=== PATIENT | female | born 1950 | race Caucasian/White ===

== ENCOUNTER 2016-08-09 05:34 | Inpatient (IN) | payer MEDICARE, MEDICAID ==
[~2016-08-09] VITALS: Ht 165.1 cm; Wt 81.0 kg
[2016-08-09] MEDS ORDERED: SODIUM CHLORIDE 0.9% 100 ML IV ONE (07:20)
[2016-08-09] MEDS ORDERED: CEFTRIAXONE 1 GM VIAL ONE (07:20)
[2016-08-09] MEDS ORDERED: SODIUM CHLORIDE 0.9% 1,000 ML ONE (07:20)
[2016-08-09 10:37] VITALS: BP_SYST 112; RESP 20; TEMP 98.4
[2016-08-09 10:38] VITALS: Ht 165.1 cm; Wt 81.0 kg
[2016-08-09] MEDS ORDERED: MISSING DOSE XX ONE (11:15)
[2016-08-09] MEDS: AZITHROMYCIN 500 MG in SODIUM CHLORIDE 0.9% 250 ML IV SCH (11:19)
[2016-08-09] MEDS: CEFTRIAXONE 1 GM in SODIUM CHLORIDE 0.9% 50 ML IV SCH (11:19)
[2016-08-09] MEDS: SERTRALINE 100 MG TAB PO SCH (11:19)
[2016-08-09] MEDS: METHYLPRED SOD SUCC 125 MG/2 ML VIAL IV SCH ×2 (11:19→16:37)
[2016-08-09] MEDS: ARIPiprazole 10 MG TABLET PO SCH (11:20)
[2016-08-09] MEDS: ASPIRIN 81 MG CHEW TAB PO SCH (11:20)
[2016-08-09] MEDS: GUAIFEN/DM 600/30 TAB PO SCH ×2 (11:20→21:41)
[2016-08-09] MEDS: GABAPENTIN 300 MG CAP PO SCH ×4 (11:21→21:40)
[2016-08-09] MEDS: ENOXAPARIN 40 MG/0.4 ML SYR SUBQ SCH (11:21)
[2016-08-09] MEDS: SALINE FLUSH 10 ML FLUSH SCH ×2 (11:21→21:41)
[2016-08-09] MEDS: THEOPHYLLINE ER 300 MG TAB PO SCH (11:27)
[2016-08-09] MEDS: OXYCODONE/APAP 7.5/325 TAB PO PRN (11:28)
[2016-08-09 13:12] VITALS: BP_SYST 108; RESP 18; TEMP 99.5
[2016-08-09] MEDS: DUONEB INH SCH ×2 (15:15→16:45)
[2016-08-09 15:22] VITALS: RESP 18
[2016-08-09 15:53] VITALS: BP_SYST 109; RESP 18; TEMP 98
[2016-08-09 19:20] VITALS: BP_SYST 130; RESP 18; TEMP 98.2
[2016-08-09] MEDS: ATENOLOL 25 MG TAB PO SCH (21:40)
[2016-08-09] MEDS: CLOPIDOGREL 75 MG TAB PO SCH (21:40)
[2016-08-09] MEDS: NEB-ALBUTEROL 2.5 MG/3 ML INH PRN (23:56)
[2016-08-10] VITALS (11 sets, daily range): BP systolic 86–120; RESP 18–24; TEMP 97–98.3
[2016-08-10] MEDS: METHYLPRED SOD SUCC 125 MG/2 ML VIAL IV SCH ×3 (00:28→16:55)
[2016-08-10] MEDS: DUONEB INH SCH ×3 (05:37→19:52)
[2016-08-10] MEDS: SODIUM CHLORIDE 0.9% FLUSH BAG 500 ML IV SCH (06:06)
[2016-08-10] MEDS: OXYCODONE/APAP 7.5/325 TAB PO PRN ×4 (06:42→19:43)
[2016-08-10] MEDS: CEFTRIAXONE 1 GM in SODIUM CHLORIDE 0.9% 50 ML IV SCH (08:43)
[2016-08-10] MEDS: SALINE FLUSH 10 ML FLUSH SCH ×2 (08:43→19:44)
[2016-08-10] MEDS: SALINE FLUSH 10 ML FLUSH PRN (08:44)
[2016-08-10] MEDS: AZITHROMYCIN 500 MG in SODIUM CHLORIDE 0.9% 250 ML IV SCH (08:44)
[2016-08-10] MEDS: GUAIFEN/DM 600/30 TAB PO SCH ×2 (08:45→19:43)
[2016-08-10] MEDS: ASPIRIN 81 MG CHEW TAB PO SCH (08:46)
[2016-08-10] MEDS: THEOPHYLLINE ER 300 MG TAB PO SCH (08:46)
[2016-08-10] MEDS: SERTRALINE 100 MG TAB PO SCH (08:47)
[2016-08-10] MEDS: ENOXAPARIN 40 MG/0.4 ML SYR SUBQ SCH (08:48)
[2016-08-10] MEDS: GABAPENTIN 300 MG CAP PO SCH ×4 (09:52→19:44)
[2016-08-10] MEDS: ARIPiprazole 10 MG TABLET PO SCH (09:52)
[2016-08-10] MEDS ORDERED: Furosemide 40 MG/4 ML VIAL IV ONE (11:00)
[2016-08-10] MEDS: MONTELUKAST 10 MG TAB PO SCH (13:18)
[2016-08-10] MEDS: BENZONATATE 100 MG CAP PO PRN ×2 (13:18→19:50)
[2016-08-10] MEDS ORDERED: KCL CR 10 MEQ TAB PO ONE (13:25)
[2016-08-10] MEDS: BACLOFEN 10 MG TAB PO SCH ×2 (16:55→19:43)
[2016-08-10] MEDS: Furosemide 20 MG/2 ML VIAL IV SCH (17:39)
[2016-08-10] MEDS: ATENOLOL 25 MG TAB PO SCH (19:43)
[2016-08-10] MEDS: CLOPIDOGREL 75 MG TAB PO SCH (19:43)
[2016-08-11] MEDS: METHYLPRED SOD SUCC 125 MG/2 ML VIAL IV SCH ×2 (00:15→08:10)
[2016-08-11] MEDS: OXYCODONE/APAP 7.5/325 TAB PO PRN ×5 (02:18→23:25)
[2016-08-11 03:00] VITALS: BP_SYST 98; RESP 18; TEMP 97.6
[2016-08-11] MEDS: SODIUM CHLORIDE 0.9% FLUSH BAG 500 ML IV SCH (06:00)
[2016-08-11] MEDS: DUONEB INH SCH ×3 (07:11→18:44)
[2016-08-11 07:41] VITALS: BP_SYST 114; RESP 18; TEMP 98.3
[2016-08-11] MEDS: ASPIRIN 81 MG CHEW TAB PO SCH (08:07)
[2016-08-11] MEDS: GABAPENTIN 300 MG CAP PO SCH ×4 (08:08→20:51)
[2016-08-11] MEDS: BACLOFEN 10 MG TAB PO SCH ×3 (08:08→20:52)
[2016-08-11] MEDS: KCL CR 10 MEQ TAB PO SCH (08:08)
[2016-08-11] MEDS: GUAIFEN/DM 600/30 TAB PO SCH ×2 (08:08→20:52)
[2016-08-11] MEDS: ARIPiprazole 10 MG TABLET PO SCH (08:08)
[2016-08-11] MEDS: SERTRALINE 100 MG TAB PO SCH (08:08)
[2016-08-11] MEDS: CEFTRIAXONE 1 GM in SODIUM CHLORIDE 0.9% 50 ML IV SCH (08:09)
[2016-08-11] MEDS: THEOPHYLLINE ER 300 MG TAB PO SCH (08:09)
[2016-08-11] MEDS: MONTELUKAST 10 MG TAB PO SCH (08:09)
[2016-08-11] MEDS: Furosemide 20 MG/2 ML VIAL IV SCH ×2 (08:10→16:43)
[2016-08-11] MEDS: SALINE FLUSH 10 ML FLUSH SCH ×2 (08:11→20:52)
[2016-08-11] MEDS: ENOXAPARIN 40 MG/0.4 ML SYR SUBQ SCH (08:12)
[2016-08-11] MEDS: AZITHROMYCIN 500 MG in SODIUM CHLORIDE 0.9% 250 ML IV SCH (08:54)
[2016-08-11] MEDS ORDERED: KCL CR 10 MEQ TAB PO SCH (09:00)
[2016-08-11] MEDS ORDERED: Losartan 50 MG TAB PO SCH (09:00)
[2016-08-11] MEDS: BENZONATATE 100 MG CAP PO PRN ×3 (10:13→23:19)
[2016-08-11 11:35] VITALS: BP_SYST 129; RESP 18; TEMP 97.7
[2016-08-11 16:00] VITALS: BP_SYST 136; RESP 18; TEMP 98.1
[2016-08-11 19:38] VITALS: BP_SYST 119; RESP 22; TEMP 98.4
[2016-08-11] MEDS: ATENOLOL 25 MG TAB PO SCH (20:51)
[2016-08-11] MEDS: CLOPIDOGREL 75 MG TAB PO SCH (20:52)
[2016-08-11] MEDS: NEB-ALBUTEROL 2.5 MG/3 ML INH PRN (22:21)
[2016-08-11 23:36] VITALS: BP_SYST 129; RESP 20; TEMP 98.3
[2016-08-12 03:05] VITALS: BP_SYST 110; RESP 22; TEMP 97.4
[2016-08-12] MEDS: SODIUM CHLORIDE 0.9% FLUSH BAG 500 ML IV SCH ×2 (05:02)
[2016-08-12] MEDS: DUONEB INH SCH ×3 (06:58→18:53)
[2016-08-12 07:49] VITALS: BP_SYST 120; RESP 22; TEMP 97.2
[2016-08-12] MEDS ORDERED: MISSING DOSE XX ONE (08:45)
[2016-08-12] MEDS: PREDNISONE 20 MG TAB PO SCH (09:10)
[2016-08-12] MEDS: SALINE FLUSH 10 ML FLUSH SCH ×2 (09:10→20:52)
[2016-08-12] MEDS: CEFTRIAXONE 1 GM in SODIUM CHLORIDE 0.9% 50 ML IV SCH (09:10)
[2016-08-12] MEDS: Furosemide 20 MG/2 ML VIAL IV SCH ×2 (09:10→17:43)
[2016-08-12] MEDS: GABAPENTIN 300 MG CAP PO SCH ×4 (09:11→20:51)
[2016-08-12] MEDS: MONTELUKAST 10 MG TAB PO SCH (09:11)
[2016-08-12] MEDS: OXYCODONE/APAP 7.5/325 TAB PO PRN ×3 (09:11→20:52)
[2016-08-12] MEDS: KCL CR 10 MEQ TAB PO SCH (09:12)
[2016-08-12] MEDS: SERTRALINE 100 MG TAB PO SCH (09:12)
[2016-08-12] MEDS: ASPIRIN 81 MG CHEW TAB PO SCH (09:12)
[2016-08-12] MEDS: BENZONATATE 100 MG CAP PO PRN ×2 (09:12→20:52)
[2016-08-12] MEDS: BACLOFEN 10 MG TAB PO SCH ×3 (09:12→20:52)
[2016-08-12] MEDS: THEOPHYLLINE ER 300 MG TAB PO SCH (09:12)
[2016-08-12] MEDS: GUAIFEN/DM 600/30 TAB PO SCH ×2 (09:12→20:52)
[2016-08-12] MEDS: ENOXAPARIN 40 MG/0.4 ML SYR SUBQ SCH (09:14)
[2016-08-12] MEDS: ARIPiprazole 10 MG TABLET PO SCH (09:14)
[2016-08-12 11:03] VITALS: BP_SYST 129; RESP 20; TEMP 97.7
[2016-08-12 16:03] VITALS: BP_SYST 140; RESP 20; TEMP 97.6
[2016-08-12 20:37] VITALS: BP_SYST 122; RESP 20; TEMP 98.3
[2016-08-12] MEDS: CLOPIDOGREL 75 MG TAB PO SCH (20:51)
[2016-08-12] MEDS: ATENOLOL 25 MG TAB PO SCH (20:51)
[2016-08-12 23:12] VITALS: BP_SYST 145; RESP 18; TEMP 97.7
[2016-08-13] MEDS: OXYCODONE/APAP 7.5/325 TAB PO PRN ×4 (01:54→20:20)
[2016-08-13 04:02] VITALS: BP_SYST 135; RESP 20; TEMP 97.3
[2016-08-13] MEDS: SODIUM CHLORIDE 0.9% FLUSH BAG 500 ML IV SCH ×2 (06:00→06:08)
[2016-08-13] MEDS: DUONEB INH SCH ×3 (06:21→19:05)
[2016-08-13 07:24] VITALS: BP_SYST 121; RESP 20; TEMP 98.5
[2016-08-13] MEDS: BACLOFEN 10 MG TAB PO SCH ×3 (09:00→20:07)
[2016-08-13] MEDS: SALINE FLUSH 10 ML FLUSH SCH ×2 (09:08→20:20)
[2016-08-13] MEDS: Furosemide 20 MG/2 ML VIAL IV SCH ×2 (09:08→16:40)
[2016-08-13] MEDS: ENOXAPARIN 40 MG/0.4 ML SYR SUBQ SCH (09:09)
[2016-08-13] MEDS: CEFTRIAXONE 1 GM in SODIUM CHLORIDE 0.9% 50 ML IV SCH (09:09)
[2016-08-13] MEDS: SERTRALINE 100 MG TAB PO SCH (09:10)
[2016-08-13] MEDS: BENZONATATE 100 MG CAP PO PRN ×2 (09:10→20:19)
[2016-08-13] MEDS: KCL CR 10 MEQ TAB PO SCH (09:13)
[2016-08-13] MEDS: GUAIFEN/DM 600/30 TAB PO SCH ×2 (09:13→20:19)
[2016-08-13] MEDS: GABAPENTIN 300 MG CAP PO SCH ×4 (09:14→20:19)
[2016-08-13] MEDS: MONTELUKAST 10 MG TAB PO SCH (09:14)
[2016-08-13] MEDS: PREDNISONE 20 MG TAB PO SCH (09:14)
[2016-08-13] MEDS: THEOPHYLLINE ER 300 MG TAB PO SCH (09:14)
[2016-08-13] MEDS: ARIPiprazole 10 MG TABLET PO SCH (09:15)
[2016-08-13] MEDS: ASPIRIN 81 MG CHEW TAB PO SCH (10:19)
[2016-08-13] MEDS: SALINE FLUSH 10 ML FLUSH PRN ×2 (10:19→16:43)
[2016-08-13 11:17] VITALS: BP_SYST 115; RESP 20; TEMP 98.1
[2016-08-13 14:58] VITALS: BP_SYST 144; RESP 20; TEMP 98.2
[2016-08-13] MEDS ORDERED: KCL CR 20 MEQ TAB PO ONE (16:55)
[2016-08-13] MEDS: NEB-BUDESONIDE 0.5 MG INH SCH (19:05)
[2016-08-13] MEDS: NEB-BROVANA 15 MCG/2 ML INH SCH (19:05)
[2016-08-13 19:41] VITALS: BP_SYST 147; RESP 18; TEMP 97.6
[2016-08-13] MEDS: ATENOLOL 25 MG TAB PO SCH (20:19)
[2016-08-13] MEDS: CLOPIDOGREL 75 MG TAB PO SCH (20:19)
[2016-08-13 23:44] VITALS: BP_SYST 110; RESP 18; TEMP 97.6
[2016-08-14] MEDS: NEB-ALBUTEROL 2.5 MG/3 ML INH PRN ×2 (00:18→23:01)
[2016-08-14 03:00] VITALS: BP_SYST 117; RESP 18; TEMP 97.3
[2016-08-14] MEDS: SODIUM CHLORIDE 0.9% FLUSH BAG 500 ML IV SCH ×2 (05:32)
[2016-08-14] MEDS: OXYCODONE/APAP 7.5/325 TAB PO PRN ×3 (07:05→20:10)
[2016-08-14 07:11] VITALS: BP_SYST 127; RESP 18; TEMP 97.6
[2016-08-14] MEDS: NEB-BUDESONIDE 0.5 MG INH SCH ×2 (07:34→18:44)
[2016-08-14] MEDS: DUONEB INH SCH ×3 (07:34→18:44)
[2016-08-14] MEDS: NEB-BROVANA 15 MCG/2 ML INH SCH ×2 (07:34→18:44)
[2016-08-14] MEDS: Furosemide 20 MG/2 ML VIAL IV SCH ×2 (08:05→17:01)
[2016-08-14] MEDS: CEFTRIAXONE 1 GM in SODIUM CHLORIDE 0.9% 50 ML IV SCH (08:05)
[2016-08-14] MEDS: SALINE FLUSH 10 ML FLUSH SCH ×2 (08:05→20:03)
[2016-08-14] MEDS: KCL CR 10 MEQ TAB PO SCH (08:09)
[2016-08-14] MEDS: THEOPHYLLINE ER 300 MG TAB PO SCH (08:10)
[2016-08-14] MEDS: SERTRALINE 100 MG TAB PO SCH (08:10)
[2016-08-14] MEDS: ASPIRIN 81 MG CHEW TAB PO SCH (08:10)
[2016-08-14] MEDS: MONTELUKAST 10 MG TAB PO SCH (08:10)
[2016-08-14] MEDS: ARIPiprazole 10 MG TABLET PO SCH (08:11)
[2016-08-14] MEDS: GUAIFEN/DM 600/30 TAB PO SCH ×2 (08:11→20:03)
[2016-08-14] MEDS: GABAPENTIN 300 MG CAP PO SCH ×4 (08:11→20:03)
[2016-08-14] MEDS: PREDNISONE 20 MG TAB PO SCH (08:11)
[2016-08-14] MEDS: ENOXAPARIN 40 MG/0.4 ML SYR SUBQ SCH (08:13)
[2016-08-14] MEDS: BACLOFEN 10 MG TAB PO SCH ×3 (09:00→20:03)
[2016-08-14 11:28] VITALS: BP_SYST 129; RESP 18; TEMP 98.1
[2016-08-14 15:29] VITALS: BP_SYST 152; RESP 18; TEMP 98.1
[2016-08-14] MEDS: SALINE FLUSH 10 ML FLUSH PRN (17:01)
[2016-08-14 19:33] VITALS: BP_SYST 141; RESP 22; TEMP 97.8
[2016-08-14] MEDS: LINEZOLID 600 MG TAB PO SCH (20:03)
[2016-08-14] MEDS: ATENOLOL 25 MG TAB PO SCH (20:03)
[2016-08-14] MEDS: CLOPIDOGREL 75 MG TAB PO SCH (20:03)
[2016-08-14 23:22] VITALS: BP_SYST 121; RESP 20; TEMP 97.9
[2016-08-15] MEDS: OXYCODONE/APAP 7.5/325 TAB PO PRN ×2 (03:08→09:09)
[2016-08-15 04:07] VITALS: BP_SYST 132; RESP 20; TEMP 97.5
[2016-08-15] MEDS: SODIUM CHLORIDE 0.9% FLUSH BAG 500 ML IV SCH ×2 (05:11→05:20)
[2016-08-15] MEDS: DUONEB INH SCH ×2 (06:43→10:13)
[2016-08-15] MEDS: NEB-BROVANA 15 MCG/2 ML INH SCH (06:43)
[2016-08-15] MEDS: NEB-BUDESONIDE 0.5 MG INH SCH (06:43)
[2016-08-15 07:16] VITALS: BP_SYST 132; RESP 20; TEMP 97.7
[2016-08-15] MEDS: BACLOFEN 10 MG TAB PO SCH (07:48)
[2016-08-15] MEDS: Furosemide 20 MG/2 ML VIAL IV SCH (09:00)
[2016-08-15] MEDS: SALINE FLUSH 10 ML FLUSH SCH (09:01)
[2016-08-15] MEDS: CEFTRIAXONE 1 GM in SODIUM CHLORIDE 0.9% 50 ML IV SCH (09:02)
[2016-08-15] MEDS: ASPIRIN 81 MG CHEW TAB PO SCH (09:09)
[2016-08-15] MEDS: ARIPiprazole 10 MG TABLET PO SCH (09:10)
[2016-08-15] MEDS: LINEZOLID 600 MG TAB PO SCH (09:10)
[2016-08-15] MEDS: GABAPENTIN 300 MG CAP PO SCH ×2 (09:10→11:53)
[2016-08-15] MEDS: MONTELUKAST 10 MG TAB PO SCH (09:10)
[2016-08-15] MEDS: THEOPHYLLINE ER 300 MG TAB PO SCH (09:10)
[2016-08-15] MEDS: GUAIFEN/DM 600/30 TAB PO SCH (09:11)
[2016-08-15] MEDS: SERTRALINE 100 MG TAB PO SCH (09:11)
[2016-08-15] MEDS: PREDNISONE 20 MG TAB PO SCH (09:12)
[2016-08-15] MEDS: KCL CR 10 MEQ TAB PO SCH (09:12)
[2016-08-15] MEDS: ENOXAPARIN 40 MG/0.4 ML SYR SUBQ SCH (09:13)
[2016-08-15] MEDS: NEB-ALBUTEROL 2.5 MG/3 ML INH PRN ×2 (10:13→14:16)
[2016-08-15 11:30] VITALS: BP_SYST 119; RESP 18; TEMP 97.5
[2016-08-15 13:25] VITALS: BP_SYST 150; RESP 20; TEMP 97.8
[2016-08-15 13:32] VITALS: BP_SYST 150; RESP 20; TEMP 97.8
[2016-08-15 13:37] VITALS: BP_SYST 150; RESP 20; TEMP 97.8
== END 2016-08-15 14:39 | disposition home or self-care (01) | DRG 871 ==
LOC: ENRESERVTM → ENRESERVDT → ER 05:34 → EMR 07:51 → ENPENDDIS 07:51 → PCU2 09:36 → 3NT 08-11 15:25
PROVIDERS: ADMIT Hospitalist; ATTEND Hospitalist
CPT/HCPCS: 71010; 71020; 80048; 80053; 80198; 81003; 83605; 83735; 83880; 85025; 87040; 87088; 87278; 87299; 87804; 94640; 94667; 94668; 94799; 96361; 96365; 99232; 99233; 99238